=== PATIENT | female | born 1965 | race Caucasian/White ===

== ENCOUNTER 2019-06-07 08:04 | Emergency (ER) | payer OTHER ==
[~2019-06-07] VITALS: Ht 162.6 cm; Wt 59.0 kg
--- NOTE | 2019-06-07 08:15 | NUR ---
BIB SELF C/O RECTAL PAIN, "I CAN'T PUT BACK MY HEMORRHOID" PATIENT A/OX4, BREATHING EVEN AND UNLABORED, NO SOB NOTED, NEEDS ATTENDED, C/O SEVERE PAIN. CHANGED INTO GOWN, ATTACHED TO THE COURIER DELIVERY DRIVER.
--- NOTE | 2019-06-07 08:20 | NUR ---
DR. RIGGS AT BEDSIDE FOR EVAL.
--- NOTE | 2019-06-07 08:38 | NUR ---
TURNED IN MOVE SHEET TO ADMITTING
[2019-06-07 08:40] LABS: BASOPHILS % (AUTO) 0.7 % (0.0-2.0); EOSINOPHILS % (AUTO) 1.2 % (0.0-6.0); HEMATOCRIT 39 % (33-45); HEMOGLOBIN 13.2 g/dL (11.5-14.8); LYMPHOCYTES # (AUTO) 1.9 /CMM (0.8-4.8); LYMPHOCYTES % (AUTO) 36.9 % (20.0-44.0); MEAN CORPUSCULAR HGB CONC 34 g/dl (31.0-36.0); MEAN CORPUSCULAR VOLUME 92 fL (82-100); MONOCYTES # (AUTO) 0.7 /CMM (0.1-1.30); MONOCYTES % (AUTO) 14.3 % (2.0-12.0); NEUTROPHILS # (AUTO) 2.4 /CMM (1.8-8.9); NEUTROPHILS % (AUTO) 46.9 % (43.0-81.0); PLATELET COUNT (AUTO) 271 /CMM (150-450); RED BLOOD CELL COUNT(AUTO) 4.28 MIL/uL (4.0-5.2); WHITE BLOOD COUNT (AUTO) 5.1 K/uL (4.3-11.0)
[2019-06-07 08:47] LABS: CALCIUM, SERUM 9.1 mg/dL (8.5-10.1); CREATININE 0.8 mg/dL (0.6-1.3); POTASSIUM 3.6 mmol/L (3.5-5.1)
--- NOTE | 2019-06-07 09:40 | NUR ---
PATIENT RESTING, NO DISTRESS NOTED. VSS.
[2019-06-07] MEDS ORDERED: IV NS 0.9% 1,000 ML BAG IV ONE (10:00)
[2019-06-07] MEDS ORDERED: ONDANSETRON HCL/PF 4 MG/2 ML VIAL IVP ONE (10:00)
[2019-06-07] MEDS ORDERED: MORPHINE SULFATE INJ 2 MG/ML DISP.SYRIN IV ONE (10:00)
[2019-06-07] MEDS ORDERED: ONDANSETRON HCL/PF 4 MG/2 ML VIAL ONE (10:02)
[2019-06-07] MEDS ORDERED: MORPHINE SULFATE INJ 4 MG/ML DISP.SYRIN ONE (10:03)
--- NOTE | 2019-06-07 10:09 | NUR ---
DR. GARCIA AT BEDSIDE, PLACED THE HEMORRHOIDS BACK IN.
[2019-06-07 10:50] VITALS: BP 115/57
--- NOTE | 2019-06-07 10:50 | NUR ---
PATIENT A/OX4, AMBULATORY WITH STEADY GAIT. IV removed. Catheter intact and site benign. Pressure and 4x4 applied to site. No bleeding noted.Patient discharged to home in stable condition. Written and verbal after care instructions given. Patient verbalizes understanding of instruction.
== END 2019-06-07 10:51 | disposition home or self-care (01) ==
LOC: ER 08:10
DX: K62.3 Rectal prolapse (principal); F17.200 Nicotine dependence, unspecified, uncomplicated; R94.31 Abnormal electrocardiogram [ECG] [EKG]; Z60.2 Problems related to living alone
CPT/HCPCS: 36415; 71045; 80048; 85025; 85730; 93005; 96374; 96375; 99284; 99406; J2270; J2405; J7030